=== PATIENT | male | born 1965 | race Caucasian/White ===

== ENCOUNTER 2023-10-01 16:55 | Observation (INO) | payer BC, SELFPAY ==
[2023-10-01 11:35] LABS: Urine Albumin Negative (Neg - Trace); Urine Bilirubin Negative (Negative); Urine Character Clear (Clear); Urine Color Yellow; Urine Glucose Negative (Negative); Urine Ketone Negative (Negative); Urine Leukocyte Negative (Negative); Urine Nitrite Negative (Negative); Urine Occult Blood 4+ (Negative); Urine Specific Gravity 1.015 (<1.030); Urine Urobilinogen Negative (Neg - 1+)
[2023-10-01 11:38] LABS: % Basophils 0.9 % (0-2); % Eosinophils 3.2 % (0-6); % Immature Granulocytes 0.3 % (0-0.5); % Lymphocytes 11.3 % (20.5-51.1); % Monocytes 9.1 % (1.7-9.3); % Neutrophils 75.2 % (42.2-75.2); Absolute Basophils 0.1 10^3/uL (0-0.2); Absolute Eosinophils 0.2 10^3/uL (0-0.7); Absolute Lymphocytes 0.9 10^3/uL (1.2-3.4); Absolute Monocytes 0.7 10^3/uL (0.1-0.6); Absolute Neutrophils 5.7 10^3/uL (1.4-6.5); Hematocrit 42.2 % (39.0-52.0); Hemoglobin 14.7 g/dL (13.0-18.0); Mean Corp Hgb Conc. 34.8 g/dL (33.0-37.0); Mean Corpuscular Hgb 29.5 pg (27.0-31.0); Mean Corpuscular Volume 84.6 fL (80.0-94.0); Nucleated Red Blood Cells % 0 % (-); Platelet Count 223 10^3/uL (130-400); Red Blood Cell Count 4.99 10^6/uL (4.70-6.10); Red Cell Dist. Width 11.9 % (11.5-14.5); White Blood Cell Count 7.6 10^3/uL (4.8-10.8)
[2023-10-01 11:46] LABS: ALT (SGPT) 40 U/L (0-50); AST (SGOT) 30 U/L (17-59); Albumin 4.6 g/dl (3.5-5.0); Alkaline Phosphatase 69 U/L (38-126); Blood Urea Nitrogen 18 mg/dl (9-20); Calcium 9.9 mg/dl (8.4-10.2); Carbon Dioxide 28 mmol/L (22-30); Chloride 102 mmol/L (98-107); Glucose 143 mg/dl (70-99); Potassium 4.6 mmol/L (3.5-5.1); Sodium 137 mmol/L (135-145); Total Bilirubin 1.4 mg/dl (0.2-1.3); Total Protein 7.7 g/dl (6.3-8.2); eGFR > 60.00
[2023-10-01 11:54] LABS: Urine Amorphous Seen; Urine Mucus Few
[2023-10-01 11:55] LABS: Urine Red Blood Cell 16-20 /HPF (0-2)
[2023-10-01 11:56] LABS: Urine Calcium Oxalate Crystals Seen
--- NOTE | 2023-10-01 12:24 | ED.GENMED ---
History of Present Illness
General
Chief Complaint: Abdominal Symptoms
Source: patient
Exam Limitations: none
Time Seen by Provider: 10/01/23 11:59
Nursing documentation reviewed up to this point in time: agreed with
Travel History
Have you had any contact with someone who has COVID-19?: No
Do you have any symptoms of coronavirus? Fever > 100 degrees, chills, cough, shortness of breath, sore throat, loss of taste or smell, muscle aches, or headache?: No
History of Present Illness
History of Present Illness:
57-year-old male with a history of kidney stones, had a CT scan in July showing an incidental right renal stone measuring 2 mm presents for right flank pain intermittently for the last 2 to 3 weeks. He thought maybe he just pulled some muscles.
Was in the right low back and a little bit into his side. Yesterday it seemed to have gotten much worse in intensity, lasting about an hour or 2. He did not take anything for the pain and felt better overnight but then woke up this morning at 830
and again had pretty severe pain lasting about an hour. He again did not take anything for it. He called his urologist Dr. Gaines and was instructed to either come in and get evaluated or assume that he was passing his kidney stone. He says he
would prefer to be imaged. He is not having any gross hematuria, dysuria, fevers or chills. He did have some nausea with the waves of pain yesterday but did not vomit.
Past History
Past History
ED Past Medical History: Hypercholesterolemia and NIDDM
Social History
Tobacco: Non-smoker
Alcohol: None
Personal:
Review of Systems
Review of Systems
Allergies reviewed?: Yes
All Other Systems: Not applicable
Phy Exam
Physical Exam
Physical Exam:
GENERAL: Alert, comfortable
Neck: supple
CARDIAC: Regular rate and rhythm .
LUNGS: Clear breath sounds bilaterally, no acute respiratory distress, no wheezes/rales/rhonchi
ABDOMEN: Soft, normal bowel sounds, nondistended, mild RLQ tenderness, no guarding, no rebound, neg bunn's
back: mild right lower tenderness
painful ROM but full ROM intact
NEUROLOGICAL: Alert and oriented, no focal neuro deficits
SKIN: Warm and dry, skin intact.
PSYCH: Normal and appropriate interaction.
Course
Orders/Labs/Results
Orders:
Orders
10/01/23 11:24
Complete Blood Count/With Diff Urgent
Comprehensive Metabolic Panel Urgent
Urinalysis Reflex To Culture Urgent
Date Specimen was Collected: 10/01/23
Time Specimen was Collected: 11:18
Urine Microscopic Reflex Cult Urgent
10/01/23 12:11
CT Abd/pel Without Iv Or Oral Urgent
Comment:
Reason For Exam: right sided pain, h/o R renal stone;
0.9% Sodium Chloride 1000 ml [Nss] 1,000 ml IV BOLUS
10/01/23 12:25
Ketorolac [Toradol] 30 mg IV NOW STA
10/01/23 Dinner
Regular
At Your Request: Full Participation
Does patient need a safe tray?: No
Reason for opting out of Quick Print Operator order writing: Provider Decision
10/01/23 15:57
Admit/Transfer Patient As Directed
Co-Sign Provider:
Level of Care: Observation services
Assign to:: Medical/Surgical
Physician / Group: liana
Diagnosis: stone
Patient Condition: Fair
Reason for Hospitalization: intractable pain
Expected length of stay greater than two midnights?: No
ELOS- Estimated Length of Stay in days: 2
I certify the patient meets the requirements for IP care: Yes
10/01/23 15:59
Tamsulosin [Flomax] 0.4 mg PO NOW STA
10/01/23 18:37
Acetaminophen [Tylenol] 650 mg PO Q4HPRN PRN
Atorvastatin [Lipitor] 20 mg PO QPM
HYDROmorphone [Dilaudid] 0.5 mg IV Q3HPRN PRN
METFORMIN HCl [Glucophage] 1,000 mg PO BID@0800,1700
Promethazine [Phenergan] 25 mg 0.9% Sodium Chloride 50 ml [Nss] 50 ml IV Q6HPRN
Tamsulosin [Flomax] 0.4 mg PO DAILY
10/01/23 18:37
Accucheck [Bedside Glucose Monitoring] As Directed
Frequency: AC&HS
Activity As Directed
Activity Level: Ambulate
Anti-embolism (SUSAN) Hose As Directed
Type: Thigh high
Nursing to Place Non Medication Order As Directed
Physician Order: npo after midnight
Above order entered?: Yes
Pneumatic Compression Sleeves As Directed
Type: Thigh high
Strain Urine As Directed
DX Deep Vein Thrombosis Video Routine
10/01/23 20:00
Ketorolac [Toradol] 30 mg IV Q8H
LevoFLOXacin 500 MG/100 ML [Levaquin] 500 mg in 100 ml IV Q24H
10/02/23 08:00
Glimepiride [Amaryl] 2 mg PO DAILY
Abnormal Lab Results
10/01/23
11:24
MPV 11.0 H fL
(7.4-10.4)
Absolute Lymphs (auto) 0.9 L 10^3/uL
(1.2-3.4)
Absolute Monos (auto) 0.7 H 10^3/uL
(0.1-0.6)
Lymphocytes % 11.3 L %
(20.5-51.1)
Glucose 143 H mg/dl
(70-99)
Total Bilirubin 1.4 H mg/dl
(0.2-1.3)
Ur Occult Blood Reflex 4+ A
(Negative)
Urine RBC 16-20 A /HPF
(0-2)
10/01/23 11:24
10/01/23 11:24
Vital Signs
Initial and Last Documented VS:
Initial Vital Signs
Temp Pulse Resp Pulse Ox
98.5 F 101 18 98
10/01/23 11:14 10/01/23 11:14 10/01/23 11:14 10/01/23 11:14
Last Documented Vital Signs
Temp Pulse Resp BP Pulse Ox
98.6 F 85 18 155/76 100
10/02/23 11:25 10/02/23 11:25 10/02/23 11:25 10/02/23 11:25 10/02/23 11:25
MDM/Problems Addressed
Differential Diagnosis Includes:
kuidney stone, msk lizandro
MDM/Problems Addressed:
57 y/o M with hh/o kidney stone
here with right back pain x 2 weeks, worse in episodes since yesterday, had last painful episode at 830 am this morning when he woke up
no meds taken
no urinarysymptoms
has a known right renal calculus 2 mm
has had lithotripsy and removal of the stone with stenting in x [address] gaines and was offered outpatient imaging but he preferred to be evaluated;
pt has a 5 mm prox ureteral stone
no signs of infection
pain controlled
d/w dr. gaines who offered pt admission for extraction which pt accepted
*Critical Care Note
Total Time (30-74mins, 75-104mins- exclusive of procedures): Not Applicable
ED Attending Note
-
Portions of this chart may have been created with voice recognition software.� Occasional wrong word or��sound alike� substitutions may have occurred due to the inherent limitations of voice recognition software.
Discharge Plan
Departure
Patient Disposition: Admit
Date of Disposition: 10/01/23
Time of Disposition: 15:59
Admit to: Med/Surg
Admit to doctor: liana
Presentation/result/management discussed w/ accepting MD/DO: liana
Patient with high blood pressure during this ER visit?: No
Condition: Fair
Covid-19: Not Applicable
Discharge Problem:
Ureterolithiasis
Interventions
Interventions:
*Risk Screen - Suicide Last Done: 10/01/23 12:36
*General Assessment Last Done: 10/01/23 12:36
*Neglect/Abuse Screening Last Done: 10/01/23 12:36
ED- Fall Risk Assessment Last Done: 10/01/23 12:36
*ED COVID-19 Vaccine History Last Done: 10/01/23 11:14
*Nursing Disposition Last Done: 10/01/23 18:39
KE-Emefyo-Ahdgeztrhr Assessment Last Done: 10/01/23 12:36
Discharge Date and Time
Discharge Date/Time: 10/01/23 18:39
[2023-10-01] MEDS: NSS 1000 IV (12:31)
[2023-10-01 13:49] VITALS: BP 126/73
[2023-10-01] MEDS: FLOMAX 0.400000000000000022 MG PO (16:09)
--- NOTE | 2023-10-01 16:27 | W.PN.ADMIT ---
Progress Note - Admit
Progress Note - Admit
see dictated note
pt with one week hx of right flank pain- progressing
also hx of UTI
in ER- afebrile/ ua negative
ct with 5mm prox right ureteral stone
offered [facility]- pt wants admit/surgery
risks, benefits, alternatives and disabilities reviewed
[2023-10-01 18:42] VITALS: BP 136/74
[2023-10-01 19:41] LABS: Glucose - Point of Care 106 mg/dl (70-99)
[2023-10-01] MEDS: FLOMAX PO (19:44)
[2023-10-01] MEDS: GLUCOPHAGE 1000 MG PO (19:44)
[2023-10-01] MEDS: LEVAQUIN 100 IV (19:45)
[2023-10-01] MEDS: LIPITOR 20 MG PO (19:45)
[2023-10-01] MEDS: NSS with KCL 20 MEQ 1000 IV (20:21)
[2023-10-01] MEDS: TORADOL 30 MG IV (20:21)
[2023-10-01 22:19] VITALS: BMI 31.4
[2023-10-01 23:55] VITALS: BP 128/76
[2023-10-02] VITALS (8 sets, daily range): BP systolic 110–155; BP diastolic 64–96
[2023-10-02] MEDS: TORADOL 30 MG IV (04:20)
--- NOTE | 2023-10-02 08:02 | PTCARENOTE ---
Pt going to OR with transport and Sarai. pt a+o x3 in no distress.
--- NOTE | 2023-10-02 09:37 | W.IMMPOSTOP ---
Surgical Immed Post Op Note
-
Primary Surgeon:
liana
Assisting Surgeon:
Pre-op Diagnosis:
right ureteral stone
Post-op Diagnosis:
same
Procedure Performed:
right ureteroscopy/laser lihto and stent
Anesthesia Type:
gen
Specimen / Cultures:
none
Estimated Blood Loss:
2cc
Complications:
none
Operative Findings:
successful stone removal and stent placement
discharge later today if stable
[2023-10-02 09:44] LABS: Glucose - Point of Care 135 mg/dl (70-99)
[2023-10-02] MEDS: Pyridium 200 MG PO (10:14)
[2023-10-02] MEDS: FLOMAX 0.400000000000000022 MG PO (10:44)
[2023-10-02] MEDS: NSS with KCL 20 MEQ 1000 IV (10:44)
[2023-10-02] MEDS: GLUCOPHAGE 1000 MG PO (10:44)
[2023-10-02 10:56] LABS: Glucose - Point of Care 174 mg/dl (70-99)
--- NOTE | 2023-10-03 09:38 | CM ---
CM following re: d/c planning
Chart reviewed
CM met with the patient at bedside; IA completed
Pt is observation, obs letter reviewed and copy provided
Pt reports he and his spouse in a 2SH with a couple steps to enter
DIRECTOR ONCOLOGY patient reports independence at baseline
Pt has no recent VN hx, has no DME, and has no previous SNF hx
Pt has prescription coverage and rx's are filled at [facility]
Pt PCP- Dr. Dubois
Pt has been cleared medically for d/c and has no needs
PLAN: d/c home no needs
== END 2023-10-02 12:48 | disposition home or self-care (01) ==
LOC: 4 EAST ACU 16:55
PROVIDERS: Emergency Medicine; ADMITTING PHYSICIAN Specialist; EMERGENCY PHYSICIAN Emergency Medicine; FAMILY PHYSICIAN Family Medicine
DX: N13.2 Hydronephrosis with renal and ureteral calculous obstruction (principal); N28.1 Cyst of kidney, acquired; R10.9 Unspecified abdominal pain; E78.00 Pure hypercholesterolemia, unspecified; E11.9 Type 2 diabetes mellitus without complications; I48.91 Unspecified atrial fibrillation; I48.92 Unspecified atrial flutter; G47.30 Sleep apnea, unspecified; E66.01 Morbid (severe) obesity due to excess calories; Z68.31 Body mass index [BMI] 31.0-31.9, adult; Z87.442 Personal history of urinary calculi; Z87.440 Personal history of urinary (tract) infections; E78.5 Hyperlipidemia, unspecified; Z96.653 Presence of artificial knee joint, bilateral; Z88.1 Allergy status to other antibiotic agents; Z88.0 Allergy status to penicillin; Z88.8 Allergy status to other drugs, medicaments and biological substances; Z79.84 Long term (current) use of oral hypoglycemic drugs; Z79.85 Long-term (current) use of injectable non-insulin antidiabetic drugs
CPT/HCPCS: 52356; 52352; 74176; 74420; 76000; 80053; 81003; 81015; 82962; 85025; 96361; 96374; 99284; C1758; C1894; C2617; G0378

== ENCOUNTER → 2024-01-08 11:54 | Outpatient (REF) | payer BC, SELFPAY | LOC: HWRAD 11:54 | PROVIDERS: ATTENDING PHYSICIAN Nurse Practitioner Adult Health | DX: M54.6 Pain in thoracic spine (principal) | CPT/HCPCS: 71101; 72072 ==